=== PATIENT | female | born 1975 | race Caucasian/White ===

== ENCOUNTER 2020-03-15 13:14 | Emergency (ER) | payer BC, SELFPAY ==
[2020-03-15 13:23] VITALS: BP 112/85; PULSE 92; RESP 20; TEMP 36.4; O2SAT 100
--- NOTE | 2020-03-15 13:34 | ED.SKABFB ---
HPI - Skin/Abscess/Foreign Bdy General Chief complaint: Skin/Abscess/Foreign Body Stated complaint: BUMPS Source: patient Mode of arrival: ambulatory Limitations: no limitations History of Present Illness HPI narrative: Patient is a 44 yo female who presents with rash . Patient reports recent MRI with contrast but states no known allergy in the past. Patient reports scattered rash appeared 1 day after MRI, reports itching. Denies using otc creams or meds. Reports itchy . MD complaint: rash Related Data Home Medications Medication Instructions Recorded Confirmed bupropion HCl 150 mg 24 hr tablet, 150 mg PO DAILY tablet 07/26/19 extended release buspirone 10 mg tablet 10 mg PO BID 07/26/19 dextroamphetamine-amphetamine 10 10 mg PO DAILY 07/26/19 mg tablet omeprazole 20 mg capsule,delayed 20 mg PO DAILY 07/26/19 release armodafinil mg PO 03/15/20 baclofen mg 03/15/20 diazepam 03/15/20 duloxetine mg PO 03/15/20 ergocalciferol (vitamin D2) 03/15/20 [Vitamin D2] tramadol mg 03/15/20 trazodone 03/15/20 Allergies Allergy/AdvReac Type Severity Reaction Status Date / Time latex Allergy Unknown Verified 12/15/12 10:36 No Known Allergies Allergy Unverified 09/07/18 15:36 Review of Systems Review of Systems: Narrative: CONSTITUTIONAL: Denies fever, chills, or sweats. EYES: Denies visual changes, redness, or discharge. ENT: Denies rhinorrhea, congestion, sore throat, or otalgia. CARDIOVASCULAR: Denies chest pain, palpitations, or edema. RESPIRATORY: Denies cough or dyspnea. GASTROINTESTINAL: Denies abdominal pain, nausea, vomiting, or diarrhea. GENITOURINARY: Denies dysuria or hematuria. SKIN: Reports rash and itching. MUSCULOSKELETAL: Denies back pain, joint pain, or myalgia. NEUROLOGIC: Denies headache, numbness, dizziness, or weakness. PSYCHIATRIC: Denies anxiety or depression. [facility] Past Medical History Medical History Chest pain at rest Heartburn Intermittent palpitations Smoking Surgical History Surgical History History of breast implant Family History Family History Grandparent Family history of malignant neoplasm of breast, Onset Age: 68 Social History Social History Smoking status: Current some day smoker Alcohol intake: current Exam Narrative: Exam Narrative: GENERAL: Well-appearing, well-nourished, and in no acute distress. HEAD: Normocephalic, atraumatic. EYES: EOMI. No redness or drainage. Conjunctiva are normal. ENT: Mucous membranes pink and moist. CHEST: No respiratory distress. Clear to auscultation. HEART: Regular rate and rhythm. No murmur appreciated. Normal peripheral pulses. EXTREMITIES: Normal range of motion. No edema. SKIN: Pruritic scattered papules with mild erythema NEURO: No focal deficits. Alert and oriented x3. Gait steady. PSYCH: Normal affect. No signs of depression or anxiety. Course Vital Signs Vital signs: Vital Signs Temperature 36.4 C 03/15/20 13:23 Pulse Rate 92 03/15/20 13:23 Respiratory Rate 20 03/15/20 13:23 Blood Pressure 112/85 03/15/20 13:23 Pulse Oximetry 100 03/15/20 13:23 Temperature 36.4 C 03/15/20 13:23 Pulse Rate 92 03/15/20 13:23 Respiratory Rate 20 03/15/20 13:23 Blood Pressure 112/85 03/15/20 13:23 Pulse Oximetry 100 03/15/20 13:23 Reviewed MDM - Skin/Abscess/Foreign Bdy MDM Narrative Medical decision making narrative: Patient appears to have possible multiple insect bites, scattered on torso and bilateral extremities. Discussed with patient the need to wash all bedding etc. Discussed with patient that this is most likely not a reaction to the MRI. Patient understands and agrees with plan of care. Differential Diagnosis Differential diagnosis: Likely insect bites Critical Care Time Critical Car
== END 2020-03-15 13:57 | disposition home or self-care (01) ==
PROVIDERS: Emergency Provider Nurse Practitioner; PCP Emergency Medicine
DX: T14.8XXA Other injury of unspecified body region, initial encounter (principal); S30.861A Insect bite (nonvenomous) of abdominal wall, initial encounter; S20.369A Insect bite (nonvenomous) of unspecified front wall of thorax, initial encounter; S20.96XA Insect bite (nonvenomous) of unspecified parts of thorax, initial encounter; W57.XXXA Bitten or stung by nonvenomous insect and other nonvenomous arthropods, initial encounter; L25.9 Unspecified contact dermatitis, unspecified cause; F17.200 Nicotine dependence, unspecified, uncomplicated
CPT/HCPCS: 99213; G0463

== ENCOUNTER 2021-08-01 02:18 | Day surgery (SDC) | payer BC, SELFPAY ==
[2021-07-29 08:50] VITALS: BMI 21.7
--- NOTE | 2021-07-29 09:13 | PC.NURSE ---
Report to the Outpatient Waiting Room, entrance under the green pavilion located off [facility], at time 0930 on date 08/01/21. OR Time: 1130. - You will be asked a series of questions to screen for COVID 19 for your protection. - A mask is required within the hospital. - No visitors are allowed at this time. Preoperative COVID Testing Requirements: TO BRING COVID CARD No COVID Test needed if: (proof is required; if not received patient will have Rapid Test prior to entry) - Patient has received COVID Vaccine at least 14 days prior to procedure date or - Patient has positive COVID test result within last 90 days of surgery date. COVID Test needed if above criteria is not met Patients may have clear liquids (water, carbonated beverages, clear teas, apple juice) until 3 hours prior to surgery with a maximum of 20 ounces. - No food from midnight until time of surgery Take the following medications with a SIP of water the morning of surgery: DIAZEPAM, DULOXETINE, TRAMADOL (IF NEEDED) Medications to discontinue per physician: N/A Date to take last dose: N/A Please no make-up, nail dutch, hairspray, perfume, deodorant, or body powder the day of surgery. No jewelry (including any body piercings) or valuables the day of surgery, leave them at home. Please take a shower or bath the night before, or the morning of, surgery with an antibacterial soap. Wear comfortable, loose fitting clothing. - Jewelry must be removed prior to entering the operating room. Rings and piercings that are not removed may be cut off. - The hospital will not accept responsibility for valuables. - Please leave all valuables, including medications, at home the day of surgery. If you are going home after surgery, a licensed carrier driver must drive you home. - NO public transportation without another adult. - We recommend that an adult stay with you for 24 hours following discharge. - We also recommend that you do not drive, make important decision, drink alcoholic beverages, or take any drugs that were not prescribed by your health care provider for at least 24 hours after your discharge time. Follow any additional instructions given to you from your surgeon. Telephone instructions given to ROSIO NEWTON and asked if any additional questions and then verbalized understanding. Patient advised to call surgeon office or pre surgery nurse liaison [phone] if any additional questions.
--- NOTE | 2021-07-30 11:46 | PM.IMHP ---
H&P: HPI History of Present Illness Date/Time: 07/30/21 11:46 45-year-old female admitted for hysteroscopy dilatation curettage secondary to postmenopausal bleeding. She had some light spotting she had been taking hormone. She had an ultrasound that showed mildly thickened endometrium and could not be completely visualized so she was offered hysteroscopy D& C. Risks and benefits reviewed in great detail Chief Complaint: Postmenopausal bleeding Review of Systems Review of Systems: All systems reviewed & are unremarkable except as noted in HPI and below PMFSH Past Medical History Medical History Chest pain at rest Heartburn Intermittent palpitations Smoking Surgical History Surgical History History of breast implant Family History Family History Grandparent Family history of malignant neoplasm of breast, Onset Age: 68 Social History Social History Smoking packs per day: 0.5 Smoking cigarettes per day: 10.0 Years smoked: 34 Smoking pack-years: 17.00 Smoking status: Current every day smoker Tobacco type: cigarettes Alcohol intake: current Alcohol use details: VERY RARE Substance use: current Substance use type: marijuana Living arrangements: with family Spiritual care concerns: No Meds Home Medications and Allergies Home Medications Medication Instructions Recorded Confirmed Type dextroamphetamine-amphetamine 10 10 mg PO DAILY PRN 07/26/19 07/29/21 History mg tablet omeprazole 20 mg capsule,delayed 20 mg PO DAILY 07/26/19 07/29/21 History release baclofen 10 mg PO TID PRN 03/15/20 07/29/21 History diazepam 5 mg PO BID PRN 03/15/20 07/29/21 History duloxetine 30 mg PO DAILY 03/15/20 07/29/21 History tramadol 50 mg PO PRN PRN 03/15/20 07/29/21 History famotidine 20 mg PO BID 07/29/21 07/29/21 History Allergies Allergy/AdvReac Type Severity Reaction Status Date / Time adhesive tape AdvReac Rash Verified 07/29/21 08:43 Exam Const: General: no acute distress Eyes: General: appearance normal, both eyes and all related structures Neck: Neck: supple and no JVD Thyroid: thyroid normal Resp: Effort & Inspection: normal respiratory effort Auscultation: clear to auscultation bilaterally Cardio: Rate: regular rate Rhythm: regular rhythm GI: Inspection: non-distended GI Palp: Yes Soft to palpation, No Tenderness to palpation present (GI) and No Guarding due to palpation present (GI) Auscultation: normal bowel sounds : General: Yes bladder normal to palpation External Female Exam: normal external appearance Speculum Exam - Vagina: normal vaginal discharge and No vaginal bleeding Speculum Exam - Cervix: nontender Bimanual exam- vagina & uterus: bladder normal to palpation and No Cervical tenderness present OB/external & speculum: No vaginal bleeding Skin: General skin exam: no rashes or lesions noted Extrem: General: normal to inspection and no edema Psych: Mental Status: mental status grossly normal Affect: normal affect Assessment and Plan Additional Plan Impression: Postmenopausal bleeding Plan: Hysteroscopy/dilatation curettage
--- NOTE | 2021-07-31 15:06 | WPDANESEPPF ---
Anes - Initial Pre Proc Eval Procedure: Operation Date: 08/01/21 13:30 Proposed Procedures p Hysteroscopy with Dilation and Curettage - Caleb Price MD Date/Time: 07/31/21 15:06 Surgeon: Caleb Price MD Pre Op Diagnosis: Post Menopausal Bleeding Patient Data Age: 45 Gender: F Height: 1.7 m Weight: 63.05 kg Allergies Allergy/AdvReac Type Severity Reaction Status Date / Time adhesive tape AdvReac Mild Rash Verified 08/01/21 11:46 Home Medications Medication Instructions Recorded Confirmed Type dextroamphetamine-amphetamine 10 10 mg PO DAILY PRN 07/26/19 08/01/21 History mg tablet omeprazole 20 mg capsule,delayed 20 mg PO DAILY 07/26/19 08/01/21 History release baclofen 10 mg PO TID PRN 03/15/20 08/01/21 History diazepam 5 mg PO BID PRN 03/15/20 08/01/21 History duloxetine 30 mg PO DAILY 03/15/20 08/01/21 History tramadol 50 mg PO PRN PRN 03/15/20 07/29/21 History famotidine 20 mg PO BID 07/29/21 08/01/21 History hydrocodone-acetaminophen 1 tablet PO Q4H PRN #14 tablet 08/01/21 Rx Patient hx anesthesia problems: none Family hx anesthesia problems: none Results Review: All pre-operative results and documents have been reviewed as part of the pre-operative evaluation. [facility] Past Medical History Medical History Anxiety Chest pain at rest Heartburn Intermittent palpitations Multiple sclerosis Smoking Surgical History Surgical History History of breast implant Family History Family History Grandparent Family history of malignant neoplasm of breast, Onset Age: 68 Social History Social History Smoking packs per day: 0.5 Smoking cigarettes per day: 10.0 Years smoked: 34 Smoking pack-years: 17.00 Smoking status: Current every day smoker Tobacco type: cigarettes Alcohol intake: current Alcohol use details: VERY RARE Substance use: current Substance use type: marijuana Living arrangements: with family Spiritual care concerns: No Anes - Eval Final PreProcedure Day of Procedure 07/31/21 15:06 Patient weight: normal Heart: regular rate and rhythm Lungs: clear to auscultation and normal air movement Airway: Mallampati scale class II Neurological: alert and oriented Last oral intake: >/= 8 hours ASA classification: III Emergent: no Anesthetic plan: proceed Anesthesia type and monitoring: general GIVS and standard monitoring Results Review: All pre-operative results and documents have been reviewed as part of the pre-operative evaluation. Informed Consent: The patient's anesthetic plan and its attendant risks and benefits were discussed with the patient/family/POA. Questions were solicited and answers provided to the satisfaction of the patient/family/POA.
--- NOTE | 2021-08-01 07:21 | WPDHPUPDATE1 ---
History and Physical Update Update Date/Time: 08/01/21 07:21 History and Physical has been reviewed, including an updated exam of the patient. There are NO changes in the patient's condition. Risks, benefits, and alternatives have been discussed and questions answered. Patient agrees to proceed with procedure.
[2021-08-01 11:48] VITALS: BP 100/67; PULSE 70; RESP 16; TEMP 36.6; O2SAT 100
[2021-08-01] MEDS: ACETAMINOPHEN 500 MG TABLET 1000 MG PO (12:13)
[2021-08-01] MEDS: LACTATED RINGERS 1,000 ML 30 ML IV CONT (12:15)
[2021-08-01 12:36] LABS: Hematocrit 40.7 % (37.0-47.0); Hemoglobin 13.5 g/dL (12.0-15.0)
--- NOTE | 2021-08-01 12:58 | WPDANESEPPF ---
Anes - Initial Pre Proc Eval Procedure: Operation Date: 08/01/21 13:30 Proposed Procedures p Hysteroscopy with Dilation and Curettage - Caleb Price MD Date/Time: 08/01/21 12:58 Surgeon: Caleb Price MD Pre Op Diagnosis: Post Menopausal Bleeding Patient Data Age: 45 Gender: F Height: 1.7 m Weight: 62.6 kg Last Vital Signs Temp 97.8 F 08/01/21 11:48 Pulse 70 08/01/21 11:48 Resp 16 08/01/21 11:48 BP 100/67 08/01/21 11:48 Pulse Ox 100 08/01/21 11:48 Allergies Allergy/AdvReac Type Severity Reaction Status Date / Time adhesive tape AdvReac Mild Rash Verified 08/01/21 11:46 Home Medications Medication Instructions Recorded Confirmed Type dextroamphetamine-amphetamine 10 10 mg PO DAILY PRN 07/26/19 08/01/21 History mg tablet omeprazole 20 mg capsule,delayed 20 mg PO DAILY 07/26/19 08/01/21 History release baclofen 10 mg PO TID PRN 03/15/20 08/01/21 History diazepam 5 mg PO BID PRN 03/15/20 08/01/21 History duloxetine 30 mg PO DAILY 03/15/20 08/01/21 History tramadol 50 mg PO PRN PRN 03/15/20 07/29/21 History famotidine 20 mg PO BID 07/29/21 08/01/21 History hydrocodone-acetaminophen 1 tablet PO Q4H PRN #14 tablet 08/01/21 Rx Laboratory Tests 08/01/21 12:15 Hgb 13.5 g/dL g/dL (12.0-15.0) Hct 40.7 % % (37.0-47.0) Patient hx anesthesia problems: none Family hx anesthesia problems: none Results Review: All pre-operative results and documents have been reviewed as part of the pre-operative evaluation. [facility] Past Medical History Medical History Anxiety Chest pain at rest Heartburn Intermittent palpitations Multiple sclerosis Smoking Surgical History Surgical History History of breast implant Family History Family History Grandparent Family history of malignant neoplasm of breast, Onset Age: 68 Social History Social History Smoking packs per day: 0.5 Smoking cigarettes per day: 10.0 Years smoked: 34 Smoking pack-years: 17.00 Smoking status: Current every day smoker Tobacco type: cigarettes Alcohol intake: current Alcohol use details: VERY RARE Substance use: current Substance use type: marijuana Living arrangements: with family Spiritual care concerns: No Anes - Eval Final PreProcedure Day of Procedure 08/01/21 12:58 Patient weight: normal Heart: regular rate and rhythm Lungs: clear to auscultation Airway: Mallampati scale class II Neurological: alert and oriented Last oral intake: >/= 8 hours ASA classification: III Emergent: no Anesthetic plan: proceed Anesthesia type and monitoring: general GIVS and standard monitoring Results Review: All pre-operative results and documents have been reviewed as part of the pre-operative evaluation. Informed Consent: The patient's anesthetic plan and its attendant risks and benefits were discussed with the patient/family/POA. Questions were solicited and answers provided to the satisfaction of the patient/family/POA.
[2021-08-01] MEDS: KETOROLAC 30 MG/ML VIAL (*BKC) IV PUSH (13:28)
--- NOTE | 2021-08-01 13:30 | W.PM.PROC2 ---
Procedure Note - Detailed Date of Procedure 08/01/21 Pre-op Diagnosis Post Menopausal Bleeding Post-op Diagnosis same Procedure Performed Hysteroscopy/dilatation and curettage Surgeon Caleb Price MD Anesthesia MAC and local Indications Postmenopausal bleeding Findings The benign-appearing endometrial tissue Description of Procedure Patient was prepped draped in normal sterile fashion placed in dorsal lithotomy position. Under excellent IV sedation weighted speculum placed post fornix vagina. Anterior lip of the cervix grasped with single-tooth tenaculum. 2.5cc 1% xylocaine anesthesia placed at 2, 4, 8, 10:00 a.m. of the cervix. Uterus sounded 8cm. Serial dilatation with fragmented dilators performed followed by passage of the 5mm visualizing hysteroscope. Normal saline was used as visualizing medium. A few bloodied areas were seen with a small clot but no evidence of polyp or other abnormality seen. The uterus then scraped over the entire 360?. After good grating sound was heard, the instruments removed. All sponge, needle, instrument counts were correct. There were no immediate complications Estimated Blood Loss 5 Drains No Packing No Pathology yes Complications No immediate complications Condition stable Disposition PACU
[2021-08-01 13:33] VITALS: BP 104/67; PULSE 75; RESP 14; O2SAT 99
[2021-08-01 14:00] VITALS: BP 112/65; PULSE 75
[2021-08-01 14:30] VITALS: BP 106/61; PULSE 73
== END 2021-08-01 14:52 | disposition home or self-care (01) ==
PROVIDERS: PCP Emergency Medicine; Visit Provider Obstetrics & Gynecology
PROC: 0U5B8ZZ Destruction of Endometrium, Via Natural or Artificial Opening Endoscopic (ICD-10-PCS; CPT 58563; principal; 2021-08-01 13:30)
DX: N95.0 Postmenopausal bleeding (principal); N84.1 Polyp of cervix uteri; G35 Multiple sclerosis; F41.9 Anxiety disorder, unspecified; F17.210 Nicotine dependence, cigarettes, uncomplicated
CPT/HCPCS: 58558; 36415; 85014; 85018; 88305; A9270; J1885; J2250; J2270; J2405; J2704; J7030; J7120

== ENCOUNTER 2022-03-09 10:39 | Emergency (ER) | payer BC, SELFPAY ==
[2022-03-09 11:07] VITALS: BP 115/86; PULSE 102; RESP 18; TEMP 36.5; O2SAT 100
--- NOTE | 2022-03-09 12:00 | ED.LOWEXIN ---
HPI - Extremity Injury (Lower) General Chief Complaint: Extremity Injury, Lower Stated Complaint: Ankle pain Time Seen by Provider: 03/09/22 12:00 Source: patient, RN notes reviewed and old records reviewed Mode of arrival: ambulatory Limitations: no limitations History of Present Illness HPI Narrative: 46-year-old female presents to the [facility] with complaints of an abrasion to the medial aspect right ankle. Patient states that she was in [place] [facility] the [facility] when she scraped the ankle on concrete. Patient is afraid she has something in it. Denies any trauma. Full range of motion noted. Reports that she cleaned it when it first happened and then applied a Band-Aid. Onset (ago): day(s) (2) Related Data Home Medications Medication Instructions Recorded Confirmed dextroamphetamine-amphetamine 10 10 mg PO DAILY PRN INATTENTION 07/26/19 03/09/22 mg tablet (Adderall) omeprazole 20 mg capsule,delayed 20 mg PO DAILY 07/26/19 03/09/22 release baclofen 10 mg tablet 10 mg PO TID PRN Pain 03/15/20 03/09/22 diazepam 5 mg tablet 5 mg PO BID PRN Anxiety 03/15/20 03/09/22 duloxetine 30 mg capsule,delayed 30 mg PO DAILY 03/15/20 03/09/22 release tramadol 50 mg tablet 50 mg PO PRN PRN Pain 03/15/20 03/09/22 famotidine 20 mg tablet 20 mg PO BID 07/29/21 03/09/22 estradiol-norethindrone acet 1 1 tablet PO DAILY 03/09/22 03/09/22 mg-0.5 mg tablet Allergies Allergy/AdvReac Type Severity Reaction Status Date / Time methylprednisolone Allergy Intermediate Hives Verified 03/09/22 12:17 adhesive tape AdvReac Mild Rash Verified 03/09/22 11:58 Review of Systems Review of Systems: All systems reviewed & are unremarkable except as noted in HPI and below Constitutional: Constitutional: Reports no additional constitutional complaints, Denies chills and Denies fever(s) Eyes: Eyes: Reports no additional eye complaints ENT: Reports system reviewed and no additional complaints, except as documented Cardiovascular: Cardiovascular: Reports no additional cardiovascular complaints Respiratory: Respiratory: Reports no additional respiratory complaints Gastrointestinal: Gastrointestinal: Reports no additional gastrointestinal complaints Musculoskeletal: Musculoskeletal: Reports no additional musculoskeletal complaints Integumentary/Breasts: Skin/Breast: Reports as per HPI Neurologic: Reports system reviewed and no additional complaints, except as documented Psychiatric: Psychiatric: Reports no additional psychiatric complaints Allergic/Immunologic: Allergic/Immunologic: Reports no additional allergic/immunologic complaints [facility] Past Medical History Medical History Anxiety Chest pain at rest Heartburn Intermittent palpitations Multiple sclerosis Smoking Surgical History Surgical History History of breast implant Family History Family History Grandparent Family history of malignant neoplasm of breast, Onset Age: 68 Social History Social History Smoking packs per day: 0.5 Smoking cigarettes per day: 10.0 Years smoked: 34 Smoking pack-years: 17.00 Smoking status: Current every day smoker Tobacco type: cigarettes Alcohol intake: current Alcohol use details: VERY RARE Substance use: current Substance use type: marijuana Spiritual care concerns: No Comments At the time of my signature, I reviewed and agree with the nursing past medical, surgical, social, and family history. There is no relevant family history pertinent to the patient complaint. Exam Const: General: healthy appearing, no acute distress and alert Nutritional Appearance: well nourished Orientation/consciousness: patient oriented x3 Limitations: no limitations HENMT: Head: normal to inspection Ears: external ears normal Eyes: General: appearance normal, both ey
[2022-03-09] MEDS: TETANUS,DIPHTHERIA,AC PERTUSSIS ADULT (0.5 ML) BOOSTRIX IM (12:32)
== END 2022-03-09 12:42 | disposition home or self-care (01) ==
PROVIDERS: Emergency Provider Nurse Practitioner; PCP Internal Medicine
DX: S90.511A Abrasion, right ankle, initial encounter (principal); W22.8XXA Striking against or struck by other objects, initial encounter; Z23 Encounter for immunization; F17.210 Nicotine dependence, cigarettes, uncomplicated; G35 Multiple sclerosis; F41.9 Anxiety disorder, unspecified; R12 Heartburn
CPT/HCPCS: 90471; 90715; 99213; G0463

== ENCOUNTER 2023-09-16 13:31 | Outpatient (CLI) | payer BC, SELFPAY ==
--- NOTE | ~2023-09-16 | XR_ITS ---
EXAMINATION: XR hip RT min 2V DATE: 09/16/2023 13:49 INDICATION: Right hip pain. TECHNIQUE: 2 views of right hip were obtained. COMPARISON: None. FINDINGS: Bone alignment is normal. No fracture. There is mild right hip osteoarthritis characterized by tiny osteophytes. IMPRESSION: 1. Mild right hip osteoarthritis. Reviewed, dictated and finalized at location E. [employer]IAL CAR[employer]ER
== END 2023-09-16 13:32 | disposition home or self-care (01) ==
PROVIDERS: PCP Nurse Practitioner Adult Health; Visit Provider Nurse Practitioner Adult Health
DX: M16.11 Unilateral primary osteoarthritis, right hip (principal)
CPT/HCPCS: 73502

== ENCOUNTER 2023-11-24 14:32 | Outpatient (CLI) | payer BC, SELFPAY ==
--- NOTE | ~2023-11-24 | MR_ITS ---
EXAMINATION: MR hip RT wo con DATE: 11/24/2023 15:38 INDICATION: Right hip pain. TECHNIQUE: Magnetic resonance imaging (MRI) of the right hip was performed without intravenous contra st. COMPARISON: Pelvis and right hip radiographs 11/12/2023 FINDINGS: Bones/cartilage: There is 6 degrees levocurvature of lumbar spine. The femoral head/neck morphologies are normal. Smal l [id number] images of right hip joint demonstrate normal cartilage. Labrum: The right acetabular labrum is normal. Fluid: There is a small left hip joint effusion. There is mild bilateral trochanteric bursitis. Soft tissues: There is a small partial tear of right hamstring tendon origin. There is mild left hamstring tendinop athy. The iliopsoas tendons are normal. The gluteus minutes and gluteus medius tendons are normal. IMPRESSION: 1. Normal right hip joint. Reviewed, dictated and finalized at location E. IMPRESSION: 1. Normal right hip joint.
== END 2023-11-24 14:33 | disposition home or self-care (01) ==
LOC: ANHIMG 14:35
PROVIDERS: PCP Nurse Practitioner Adult Health; Visit Provider Orthopaedic Surgery
DX: M25.551 Pain in right hip (principal)
CPT/HCPCS: 73721

== ENCOUNTER 2025-03-21 09:27 | Outpatient (CLI) | payer OTHER, SELFPAY ==
--- OUTSIDE RECORDS SUMMARY | 2021-01-30 13:18 | XMS_ITS | Continuity of Care Document ---
Author Organization [facility] Address [address] [place] [address] Phone Care Team Providers Care Credit Checker Name Role Phone Mono Sloan MD Unavailable Unavailable Allergies, Adverse Reactions, Alerts Substance Reaction Status Criticality No Known Allergies Active No Inform ation Medications Medication Instructions Dosage Effective Dates (start - stop) Status Comments Ocrevus 30 mg/mL intravenous solution infuse (600MG) by intravenous route every 6 months over at least (maximum infusion rate 200 mL/hr) 600 MG - Active Valium 5 mg tablet take 1 tablet by oral route 2 times every day as needed 5 MG - Active avoid drivin g or operate machines, PRN for anxiety Ultram 50 mg tablet take 1 tablet by oral route every 6 hours as needed as needed - Active PRN for pain, avoid driving or operate machines Adderall 10 mg tablet take 1 tablet by oral route every day before breakfast 10 MG - Active Pepcid 20 mg tablet take 1 tablet by oral route 2 times every day 20 MG - Active Cymbalta 30 mg capsule,delayed release take 1 capsule by oral route every day 30 MG - Active Vitamin D2 1,250 mcg (50,000 unit) capsule take one capsule orally once per week - Active baclofen 10 mg tablet take 1 tablet by oral route 3 times every day 10 MG - Active Procedures Procedure Date OFFICE/OUTPATIENT VISIT, EST OFFICE/OUTPATIENT VISIT, EST OFFICE/OUTPATIENT VISIT, EST OFFICE/OUTPATIENT VISIT, EST PREV VISIT, EST, AGE 40-64 OFFICE/OUTPATIENT VISIT, EST OFFICE/OUTPATIENT VISIT, EST OFFICE/OUTPATIENT VISIT, EST OFFICE/OUTPATIENT VISIT, EST PREV VISIT, EST, AGE 40-64 OFFICE/OUTPATIENT VISIT, EST OFFICE/OUTPATIENT VISIT, EST OFFICE/OUTPATIENT VISIT, EST OFFICE/OUTPATIENT VISIT, EST OFFICE/OUTPATIENT VISIT, EST OFFICE/OUTPATIENT VISIT, EST OFFICE/OUTPATIENT VISIT, EST PREV VISIT, EST, AGE 40-64 OFFICE/OUTPATIENT VISIT, EST OFFICE/OUTPATIENT VISIT, EST OFFICE/OUTPATIENT VISIT, EST OFFICE/OUTPATIENT VISIT, EST PREV VISIT, EST, AGE 40-64 OFFICE/OUTPATIENT VISIT, EST OFFICE/OUTPATIENT VISIT, EST OFFICE/OUTPATIENT VISIT, EST OFFICE/OUTPATIENT VISIT, EST OFFICE/OUTPATIENT VISIT, EST PREV VISIT, EST, AGE 18-39 OFFICE/OUTPATIENT VISIT, EST OFFICE/OUTPATIENT VISIT, EST OFFICE/OUTPATIENT VISIT, EST OFFICE/OUTPATIENT VISIT, EST OFFICE/OUTPATIENT VISIT, EST OFFICE/OUTPATIENT VISIT, EST PREV VISIT, EST, AGE 18-39 OFFICE/OUTPATIENT VISIT, EST OFFICE/OUTPATIENT VISIT, EST OFFICE/OUTPATIENT VISIT, EST OFFICE/OUTPATIENT VISIT, EST OFFICE/OUTPATIENT VISIT, EST Advance Directives Directive Yes / No Effective Date File Name No Information Encounters Encounter Description Practice Location Reason(s) For Visit Diagnoses Date Provider Providers Copied on Encounter OFFICE/OUTPA TIENT VISIT, [facility], [address] [place] [address] [facility] [place], [address], [place] tel:[phone] [facility] anxiety1 (chief complaint) GERD1 (chief complaint) ADD (chief complaint) MS (chief complaint) Generalized anxiety disorderGERD w/o esophagitisAttentio n deficitMultiple sclerosis NOS Blaine- 1 Luther Sykes [address], [place], [place], [address] , [place]. tel:[phone] OFFICE/OUTPA TIENT VISIT, [facility], [address], [place], [place], [address], [place] tel:[phone] [facility] glucose1 (chief complaint) CPK (chief complaint) ADD (chief complaint) anxiety1 (chief complaint) MS (chief complaint) GERD1 (chief complaint) Multiple sclerosis NOSGERD w/o esophagitisGenerali zed anxiety disorderAttention deficitOther disorders of phosphorus metabolismHyperglyc emia 0 Luther Sykes [address], [place], [place], [address] , [place]. tel:[phone] OFFICE/OUTPA TIENT VISIT, [facility], [address], [place], [place], [address], [place] tel:[phone] [facility] amenorrhea 1 (chief complaint) low D (chief complaint) AmenorrheaOther disorders of phosphorus metabolismVitamin D deficiency, unspecified 0 Luther Villareal. [address], [place], [place], [address] , [place]. tel:[phone] OFFICE/OUTPA TIENT VISIT, [facility], [address], [place], [place], [address], [place] tel:[phone] [facility] anxiety1 (chief complaint) MS (chief complaint) GERD1 (chief complaint) amenorrhea 1 (chief complaint) GERD w/o esophagitisMultiple sclerosis NOSGeneralized anxiety disorderAmenorrhea 0 Luther Villareal. [address], [place], [place], [address] , [place]. tel:[phone] PREV VISIT, EST, AGE 40-64 [facility], [address], [place], [place], [address], [place] tel:[phone] [facility] physical (chief complaint) Encounter for general adult medical exam w abnormal findingsMultiple sclerosis NOSGERD w/o esophagitisAttentio n deficitGeneralized anxiety disorder 0 Luther Villareal. [address], [place], [place], [address] , [place]. tel:[phone] OFFICE/OUTPA TIENT VISIT, [facility], [address], [place], [place], [address], [place] tel:[phone] [facility] MS (chief complaint) ADD (chief complaint) GERD1 (chief complaint) physical (chief complaint) Attention deficitMultiple sclerosis NOSChronic pain syndromeGERD w/o esophagitis 9 Luther Villareal. [address], [place], [place], [address] , [place]. tel:[phone] Referring Provider: You In[address], [place], [place], [address]. tel:[phone] OFFICE/OUTPA TIENT VISIT, [facility], [address], [place], [place], [address], [place] tel:[phone] [facility] anxiety1 (chief complaint) ADD (chief complaint) MS (chief complaint) SPEP (chief complaint) amenorrhea 1 (chief complaint) Multiple sclerosis NOSAttention deficitGeneralized anxiety disorderAbnormal serum enzyme level, unspecifiedAmenorrh ea 9 Luther Villareal. [address], [place], [place], [address] , [place]. tel:[phone] Referring Provider: You In[address], [place], [place], [address]. tel:[phone] OFFICE/OUTPA TIENT VISIT, [facility], [address], [place], [place], [address], [place] tel:[phone] [facility] anxiety1 (chief complaint) finger pain1 (chief complaint) spider bite1 (chief complaint) Attention deficitGeneralized anxiety disorderGERD w/o esophagitisNevus, non-neoplastic 9 Luther Villareal. [address], [place], [place], [address] , [place]. tel:[phone] Referring Provider: You In[address], [place], [place], [address]. tel:[phone] PREV VISIT, EST, AGE 40-64 [facility], [address], [place], [place], [address], [place] tel:[phone] [facility] PHysical (chief complaint) Encounter for general adult medical exam w abnormal findingsGERD w/o esophagitisGenerali zed anxiety disorderAttention deficitMigraineNevu s, non-neoplastic 9 Luther Villareal. [address], [place], [place], [address] , [place]. tel:[phone] Referring Provider: You In[address], [place], [place], [address]. tel:[phone] OFFICE/OUTPA TIENT VISIT, [facility], [address], [place], [place], [address], [place] tel:[phone] [facility] GERD1 (chief complaint) ADD (chief complaint) chest pain1 (chief complaint) GERD w/o esophagitisChest painAttention deficitDiaphragmati c hernia 8 Luther Sykes [address], [place], [place], [address] , [place]. tel:[phone] Referring Provider: You In[address], [place], [place], [address]. tel:[phone] OFFICE/OUTPA TIENT VISIT, [facility], [address], [place], [place], [address], [place] tel:[phone] [facility] midabd pain1 (chief complaint) anxiety1 (chief complaint) ADD (chief complaint) headache1 (chief complaint) HeadacheChest painGERD w/o esophagitisAttentio n deficitGeneralized anxiety disorder 8 Luther Villareal. [address], [place], [place], [address] , [place]. tel:[phone] Referring Provider: You In[address], [place], [place], [address]. tel:[phone] OFFICE/OUTPA TIENT VISIT, [facility], [address], [place], [place], [address], [place] tel:[phone] [facility] headache1 (chief complaint) MigraineAbnormal brain scan 8 Luther Villareal. [address], [place], [place], [address] , [place]. tel:[phone] Referring Provider: You In[address], [place], [place], [address]. tel:[phone] OFFICE/OUTPA TIENT VISIT, [facility], [address], [place], [place], [address], [place] tel:[phone] [facility] headache1 (chief complaint) anxiety1 (chief complaint) ADD (chief complaint) HeadacheAttention deficitGeneralized anxiety disorderNevus, non-neoplastic 8 Luther Sykes [address], [place], [place], [address] , [place]. tel:[phone] Referring Provider: You In[address], [place], [place], [address]. tel:[phone] OFFICE/OUTPA TIENT VISIT, [facility], [address], [place], [place], [address], [place] tel:[phone] [facility] palpitatio n1 (chief complaint) ADD (chief complaint) anxiety1 (chief complaint) PalpitationsAttenti on deficitGeneralized anxiety disorder 8 Luther Sykes [address], [place], [place], [address] , [place]. tel:[phone] Referring Provider: You [address], [place], [place], [address]. tel:[phone] OFFICE/OUTPA TIENT VISIT, EST [facility], [address], [place], [place], [address], [place] tel:[phone] [facility] chest pain1 (chief complaint) vitamin D1 (chief complaint) anxiety 1 (chief complaint) ADD (chief complaint) Chest painAttention deficitVitamin D deficiency, unspecifiedGenerali zed anxiety disorder May-0 7-201 8 Luther Villareal. [address], [place], [place], [address] , [place]. tel:[phone] Referring Provider: You In[address], [place], [place], [address]. tel:[phone] PREV VISIT, EST, AGE 40-64 [facility], [address], [place], [place], [address], [place] tel:[phone] [facility] Physical (chief complaint) Encounter for general adult medical exam w abnormal findingsAttention deficitGeneralized anxiety disorder Apr-0 9- 8 Luther Villareal. [address], [place], [place], [address] , [place]. [phone] Referring Provider: You Ingram [address], [place], [place], [address]. tel:[phone] OFFICE/OUTPA TIENT VISIT, EST [facility], [address], [place], [place], [address], [place] tel:[phone] [facility] anixety1 (chief complaint) ADD (chief complaint) underweigh t (chief complaint) chest pain1 (chief complaint) Attention deficitGeneralized anxiety disorderUnderweight Chest pain May-0 9-201 6 Luther Villareal. [address], [place], [place], [address] , [place]. tel:[phone] Referring Provider: You In[address], [place], [place], [address]. tel:[phone] OFFICE/OUTPA TIENT VISIT, EST [facility], [address], [place], [place], [address], [place] tel:[phone] [facility] chest pain (chief complaint) chest pain1 (chief complaint) anxeity1 (chief complaint) ADD1 (chief complaint) Other chest painGeneralized anxiety disorderAttention deficit 6 Luther Villareal. [address], [place], [place], [address] , [place]. [phone] Referring Provider: You Ingram [address], [place], [place], [address]. tel:[phone] OFFICE/OUTPA TIENT VISIT, [facility], [address], [place], [place], [address], [place] tel:[phone] [facility] chest pain (chief complaint) chest pain1 (chief complaint) Other chest painOther emphysema 6 Luther Villareal. [address], [place], [place], [address] , [place]. [phone] Referring Provider: You In[address], [place], [place], [address]. tel:[phone] PREV VISIT, EST, AGE 40-64 [facility], [address], [place], [place], [address], [place] tel:[phone] [facility] Physical (chief complaint) Encounter for adult health check-upMixed hyperlipidemiaGener alized anxiety disorderAttention and concentration deficitNevus, non-neoplasticEncou nter for general adult medical exam w abnormal findings 5 Luther Villareal. [address], [place], [place], [address] , [place]. [phone] Referring Provider: You Ingram [address], [place], [place], [address]. tel:[phone] OFFICE/OUTPA TIENT VISIT, [facility], [address], [place], [place], [address], [place] tel:[phone] [facility] anxiety (chief complaint) Generalized anxiety disorderAttention deficit disorder of childhood without mention of hyperactivityDepres hailee 5 Luther Villareal. [address], [place], [place], [address] , [place]. tel:[phone] Referring Provider: Mono Sloan, [address], [place], [place], [address]. tel:[phone] OFFICE/OUTPA TIENT VISIT, [facility], [address], [place], [place], [address], [place] tel:[phone] [facility] anxiety (chief complaint) ADD (chief complaint) HLP (chief complaint) Other and unspecified hyperlipidemiaAtten tion deficit disorder of childhood without mention of hyperactivityGenera lized anxiety disorder 5 Luther Villareal. [address], [place], [place], [address] , [place]. [phone] Referring Provider: Mono Sloan, [address], [place], [place], [address]. tel:[phone] OFFICE/OUTPA TIENT VISIT, [facility], [address], [place], [place], [address], [place] tel:[phone] [facility] back pain (chief complaint) depression (chief complaint) ADD (chief complaint) DepressionAttention deficit disorder of childhood without mention of hyperactivityLumbag o 5 Luther Villareal. [address], [place], [place], [address] , [place]. tel:[phone] Referring Provider: Mono Sloan, [address], [place], [place], [address]. tel:[phone] OFFICE/OUTPA TIENT VISIT, [facility], [address], [place], [place], [address], [place] tel:[phone] [facility] HLP (chief complaint) anxiety (chief complaint) ADD (chief complaint) Other and unspecified hyperlipidemiaGener alized anxiety disorderAttention deficit disorder of childhood without mention of hyperactivity Dec-0 5 4 Luther Villareal. [address], [place], [place], [address] , [place]. tel:[phone] Referring Provider: You Ingram [address], [place], [place], [address]. tel:[phone] PREV VISIT, EST, AGE 18-39 [facility], [address], [place], [place], [address], [place] tel:[phone] [facility] Physical (chief complaint) Routine Medical ExamAttention deficit disorder of childhood without mention of hyperactivityGenera lized anxiety disorderUnderweight Routine Medical Exam Sep-0 2 4 Luther Villareal. [address], [place], [place], [address] , [place]. [phone] Referring Provider: You In[address], [place], [place], [address]. tel:[phone] OFFICE/OUTPA TIENT VISIT, EST [facility], [address], [place], [place], [address], [place] tel:[phone] [facility] anxiety (chief complaint) ADD (chief complaint) Dietary surveillance and counselingGeneraliz ed anxiety disorderAttention deficit disorder of childhood without mention of hyperactivityDepres hailee Jan-0 4 Luther Villareal. [address], [place], [place], [address] , [place]. tel:[phone] Referring Provider: You In[address], [place], [place], [address]. tel:[phone] OFFICE/OUTPA TIENT VISIT, EST [facility], [address], [place], [place], [address], [place] tel:[phone] [facility] anxiety (chief complaint) ADD (chief complaint) Generalized anxiety disorderMajor depressive affective disorder, single episode, mild degreeAttention deficit disorder of childhood without mention of hyperactivity Apr-1 4 Luther Villareal. [address], [place], [place], [address] , [place]. tel:[phone] Referring Provider: You In[address], [place], [place], [address]. tel:[phone] OFFICE/OUTPA TIENT VISIT, [facility], [address], [place], [place], [address], [place] tel:[phone] [facility] Anxiety (chief complaint) aDD (chief complaint) Attention deficit disorder of childhood without mention of hyperactivityGenera lized anxiety disorderMajor depressive affective disorder, single episode, mild degree 4 Luther Villareal. [address], [place], [place], [address] , [place]. tel:[phone] Referring Provider: You Ingram [address], [place], [place], [address]. tel:[phone] OFFICE/OUTPA TIENT VISIT, [facility], [address], [place], [place], [address], [place] tel:[phone] [facility] knee pain (chief complaint) shoulder pain (chief complaint) Pain in joint involving lower legPain in joint involving shoulder regionGeneralized anxiety disorder 3 Luther Villareal. [address], [place], [place], [address] , [place]. tel:[phone] Referring Provider: You In[address], [place], [place], [address]. tel:[phone] OFFICE/OUTPA TIENT VISIT, [facility], [address], [place], [place], [address], [place] tel:[phone] [facility] anxiety (chief complaint) ADD (chief complaint) shoulder pain (chief complaint) Generalized anxiety disorderAttention deficit disorder of childhood without mention of hyperactivityDietar y surveillance and counselingPain in joint involving shoulder region 3 Luther Villareal. [address], [place], [place], [address] , [place]. tel:[phone] Referring Provider: Mono Sloan, [address], [place], [place], [address]. tel:[phone] PREV VISIT, EST, AGE 18-39 [facility], [address], [place], [place], [address], [place] tel:[phone] [facility] Physical (chief complaint) Dietary surveillance and counselingRoutine Medical ExamMyalgia and myositis, unspecifiedAttentio n deficit disorder of childhood without mention of hyperactivityGenera lized anxiety disorderRoutine Medical Exam 3 Luther Villareal. [address], [place], [place], [address] , [place]. tel:[phone] Referring Provider: You In[address], [place], [place], [address]. tel:[phone] OFFICE/OUTPA TIENT VISIT, EST [facility], [address], [place], [place], [address], [place] tel:[phone] [facility] right shoulder pain (chief complaint) Dietary surveillance and counselingPain in joint involving shoulder region 3 Luther Villareal. [address], [place], [place], [address] , [place]. tel:[phone] Referring Provider: You In[address], [place], [place], [address]. tel:[phone] OFFICE/OUTPA TIENT VISIT, EST [facility], [address], [place], [place], [address], [place] tel:[phone] [facility] right breast nodule (chief complaint) anxiety (chief complaint) Lump or mass in breastUnspecified vitamin d deficiencyGeneraliz ed anxiety disorder Oct- 3 Luther Villareal. [address], [place], [place], [address] , [place]. tel:[phone] Referring Provider: You In[address], [place], [place], [address]. tel:[phone] OFFICE/OUTPA TIENT VISIT, EST [facility], [address], [place], [place], [address], tel:[phone] [facility] chest pain (chief complaint) anxiety (chief complaint) ADD (chief complaint) UnderweightChest TightnessGeneralize d anxiety disorderAttention deficit disorder of childhood without mention of hyperactivity 3 Luther Villareal. [address] [facility] [place], [address] , . tel:[phone] Referring Provider: Mono Sloan, [address] [facility] [address], [place], [place], [address]. tel:[phone] OFFICE/OUTPA TIENT VISIT, EST [facility], [address] [place], [address], tel:[phone] [facility] back pain (chief complaint) depression (chief complaint) LumbagoMajor depressive affective disorder, single episode, mild degreeAttention deficit disorder of childhood without mention of hyperactivity 2 Luther Villareal. [address] [facility] [place], [address] , [place]. tel:[phone] Family History Family Member Type Diagnosis Age At Onset Brother Problem (finding) Alive and well Father Problem (finding) Unknown Disease Mother Problem (finding) COPD Payers Payer name Insurance type Covered green party ID Authoriza tion(s) No Information Social History Type Description Quantity Date Captured Comments Alcohol Use Details Caffeine Use Details Unknown Tobacco Use Status Heavy cigarette smok er (20-39 cigs/day) Smoking Status Heavy tobacco smoker Sex Female Vital Signs Date / Time: Height Weight BMI Pulse Rate Blood Pressure Temperature Respiratory Rate Body Surface Area Head Circumference BMI percentile Pulse Ox Inhaled Ox 10:51 PM 68.00 in 143.00 lbs 21.7 4 kg/m eter (2) 130/60 mm[Hg] Chief Complaint And Reason For Visit From encounter dated '01/30/2021 18:18'. anxiety1 (chief complaint). Description: Pt has chronic anxiety and depression Pt takes cymbalta and valium and doing ok. Pt denies any suicidal or homicidal thought Pt denies any crying spells GERD1 (chief complaint). Description: Pt has chronic GERD Pt takes pepcid and doing ok Pt denies any abd pain or any GERD ADD (chief complaint). Description: Pt has ADD Pt takes adderall and doing ok Pt feels more focused MS (chief complaint). Description: Pt has MS. Pt sees neurology. Pt is Ocervus every 6 months. Pt has muscle pain. Pt takes baclofen and ultram PRN. Pt doing ok Plan Of Treatment Date Type Action Status Goal Depression screening. Due on due Goal Influenza vaccine. Due on due Goal Lipid panel. Due on due Goal Pap/HPV testing. Due on due Goal Td vaccine. Due on due Goal Tdap. Due on due Goal Lipid panel. Due on due Goal Influenza vaccine. Due on due Goal Td vaccine. Due on due Goal Tdap. Due on due Goal Pap/HPV testing. Due on due Goal Depression screening. Due on due Goal Influenza vaccine. Due on due Goal Lipid panel. Due on due Goal Td vaccine. Due on due Goal Tdap. Due on due Goal Pap/HPV testing. Due on due Goal Depression screening. Due on due Goal Lipid panel. Due on due Goal Td vaccine. Due on due Goal Tdap. Due on due Goal Pap/HPV testing. Due on due Goal Depression screening. Due on due Goal Influenza vaccine. Due on due Goal Td vaccine. Due on due Goal Lipid panel. Due on due Goal Influenza vaccine. Due on due Goal Tdap. Due on due Goal Pap/HPV testing. Due on due Goal Depression screening. Due on due Goal Tobacco cessation counseling completed Goal Td vaccine. Due on due Goal Tdap. Due on due Goal Pap/HPV testing. Due on due Goal Depression screening. Due on due Goal Influenza vaccine. Due on due Goal Lipid panel. Due on due Goal Tobacco cessation counseling completed Goal Td vaccine. Due on due Goal Tdap. Due on due Goal Lipid panel. Due on due Goal Influenza vaccine. Due on due Goal Pap/HPV testing. Due on due Goal Depression screening. Due on due Goal Tobacco cessation counseling completed Goal Depression screening. Due on due Goal Pap/HPV testing. Due on due Goal Tdap. Due on due Goal Td vaccine. Due on due Goal Influenza vaccine. Due on due Goal Lipid panel. Due on due Goal Tobacco cessation counseling completed Goal Depression screening. Due on due Goal Pap/HPV testing. Due on due Goal Tdap. Due on due Goal Td vaccine. Due on due Goal Influenza vaccine. Due on due Goal Lipid panel. Due on due Goal Tobacco cessation counseling completed Goal Td vaccine. Due on due Goal Tdap. Due on due Goal Pap/HPV testing. Due on due Goal Depression screening. Due on due Goal Lipid panel. Due on due Goal Influenza vaccine. Due on due Goal Tobacco cessation counseling completed Goal Td vaccine. Due on due Goal Tdap. Due on due Goal Pap/HPV testing. Due on due Goal Lipid panel. Due on due Goal Influenza vaccine. Due on due Goal Depression screening. Due on due Goal Tobacco cessation counseling completed Goal Depression screening. Due on due Goal Pap/HPV testing. Due on due Goal Tdap. Due on due Goal Td vaccine. Due on 18 due Goal Influenza vaccine. Due on due Goal Lipid panel. Due on due Goal Td vaccine. Due on 18 due Goal Lipid panel. Due on due Goal Influenza vaccine. Due on due Goal Tdap. Due on due Goal Pap/HPV testing. Due on due Goal Depression screening. Due on due Goal Lipid panel. Due on due Goal Influenza vaccine. Due on due Goal Td vaccine. Due on 18 due Goal Tdap. Due on due Goal Pap/HPV testing. Due on due Goal Depression screening. Due on due Goal Depression screening. Due on due Goal Pap/HPV testing. Due on due Goal Tdap. Due on due Goal Td vaccine. Due on 18 due Goal Influenza vaccine. Due on due Goal Lipid panel. Due on 018 due Goal Depression screening. Due on due Goal Pap/HPV testing. Due on due Goal Tdap. Due on due Goal Td vaccine. Due on 18 due Goal Influenza vaccine. Due on due Goal Lipid panel. Due on 018 due Goal Td vaccine. Due on 16 due Goal Tdap. Due on due Goal Pap/HPV testing. Due on due Goal Depression screening. Due on due Goal Depression screening. Due on due Goal Pap/HPV testing. Due on due Goal Tdap. Due on due Goal Td vaccine. Due on 16 due Goal Depression screening. Due on due Goal Td vaccine. Due on due Goal Tdap. Due on due Goal Pap/HPV testing. Due on due Goal Tdap. Due on due Goal Td vaccine. Due on due Goal Pap/HPV testing. Due on due Goal Depression screening. Due on due Goal Tobacco cessation counseling completed Goal Tobacco cessation counseling completed Goal Tobacco cessation counseling completed Goal Tobacco cessation counseling completed Goal Tobacco cessation counseling completed Goal Tobacco cessation counseling completed Goal Tobacco cessation counseling completed Goal Tobacco cessation counseling completed Goal Tobacco cessation counseling completed Goal Tobacco cessation counseling completed Goal Tobacco cessation counseling completed Goal Tobacco cessation counseling completed Goal Tobacco cessation counseling completed Goal Tobacco cessation counseling completed Goal Tobacco cessation counseling completed Referral Ordered: Darrion Toscano -[facility] : Surgery (related to Nevus, non-neoplastic) ordered Referral Ordered: UPPER GI AIR CONTRASTW/ SMALL BOWEL SERIES ordered Referral Ordered: Phillip Robles -[facility] : Psychiatry & Neurology : Neurology (related to Abnormal brain scan) ordered Referral Referred To: Phillip Robles [address] [id number] Ordered: Referrals: [facility] : Psychiatry & Neurology : Neurology. Phillip Robles. Evaluate and treat ordered Referral Ordered: Darrion Toscano -[facility] : Surgery (related to Nevus, non-neoplastic) ordered Referral Ordered: MRI BRAIN W/O DYE ordered Referral Referred To: Darrion Toscano [facility] [address] [place] [id number] Ordered: Referrals: [facility] Phys[facility] : Surgery. Darrion Toscano. Evaluate and treat ordered Referral Ordered: ELECTROCARDIOGRAM, COMPLETE ordered Referral Ordered: Cardiology (related to Other chest pain) ordered Referral Ordered: Referrals: Cardiology. Evaluate and treat ordered Referral Ordered: DOPPLER ECHO EXAM, HEART ordered Referral Ordered: Dermatology (related to Nevus, non-neoplastic) ordered Referral Ordered: Referrals: Dermatology. Evaluate and treat ordered Referral Ordered: MAMMOGRAM, SCREENING ordered Referral Ordered: KNEE XRAY TWO-VIEW ordered Referral Ordered: Physical Therapy ordered Referral Ordered: UNILATERAL RIBS/CHEST XRAY 1 VIEW ordered Referral Referred To: Physical Therapy Ordered: Referral: Physical Therapy. ordered Referral Ordered: Genrl Surg ordered Referral Ordered: Referral: Genrl Surg. ordered Referral Ordered: US SOFT TISSUE CHEST ordered History Of Present Illness Encounter Date Complaint History Of Prese nt Illness MS Pt has MS. Pt se es neurology. Pt is Ocervus every 6 months. Pt has muscle pain. Pt takes baclofen and ultram PRN. Pt doing ok ADD Pt has ADD Pt ta kes adderall and doing ok Pt feels more focused anxiety1 Pt has chronic a nxiety and depression Pt takes cymbalta and valium and doing ok. Pt denies any suicidal or homicidal thought Pt denies any crying spells GERD1 Pt has chronic G ERD Pt takes pepcid and doing ok Pt denies any abd pain or any GERD MS Pt has MS. pt se es neurology and gets IV infusion every 6 months Pt has chronic myalgia from above. pt takes ultram PRN and doing ok GERD1 Pt has chronic G ERD Pt doing ok with pepcid pt denies any abd pain glucose1 Pt did not do la b fasting Pt had ice cream before lab Pt denies any polyuria polydipsia. CPK Pt has low CPK a nd borderline high phos. Pt has normal PTH and D. ADD Pt has ADD pt do ing ok with adderall PRn anxiety1 Pt has chronic a nxiety and depression Pt doing ok with cymbalta and valium PRN Pt denies any suicidal or homicidal thought .Pt denies any crying spells low D Pt has low D. Pt has high phos. Pt denies any bone pain amenorrhea1 Pt has not had p eriod for 6 months, Pt notices some hot flash as well , Lab shows that she is postmeno amenorrhea1 Pt has not had p eriod for 2-3 months ,Pt denies any vaginal bleeding or pain or discharge. her had vasectomy. Pt has some hot flash GERD1 Pt only takes pe pcid PRn and she denies any daily GERD pt has very mild gerd. Pt denies any abd pain MS Pt is on ocrevus infusion and she takes ultram and cymbalta and baclofen for muscle pain, pt doing ok currently anxiety1 Pt has chronic a nxiety and depression ,Pt doing much better with cymbalta and valium Pt denies any suicidal or homicidal thought physical Pt needs annual physical. pt has MS. Pt is getting IV infusion now but not sure the name .Pt has GERD Pt takes pepcid daily Pt is off omeprazole. Pt doing ok with pepcid. pt has anxiety Pt takes valium and doing ok Pt denies any suicidal or homicidal thought. Pt has MS .Pt has muscle pain Pt is on neurontin but is not helping ,Pt has ADD Pt doing ok with adderall Pt has muscle spasm from MS Pt feels numbness and tingling all over MS Pt has MS Pt has diffuse muscle pain Pt states that ultram did help, her MS doctor told her to try medical marijuana ADD Patient has ADD. Patient has inattentive type. Patient feels scatterbrained. Patient feel poor focus and difficulty completing tasks. Patient states that Adderall is helping with symptoms. Patient feels more focused. Pt feels more energy. Patient denies any headache, dry mouth, headache, chest pain. Patient denies any appetite loss. GERD1 Pt has intermitt ent GERD. Pt has sliding hiatal hernia. 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 pt denies any sick or cough or night sweat or recent travel amenorrhea1 Pt has not had p eriod for 3 months Pt has hot flash, Pt had not had sex for 3 months. Pt denies MS Pt was just diag nosed with progressive MS. Pt has intermittent blurred vision, burning around head, some intermittent leg pain and weakness. and some diffuse muscle pain Pt is seeing neurology and [facility] and she will start IV treatment soon. ADD Pt has ADD, inat tentive type, Pt doing ok with adderall. 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 Pt notice a small puncture bryan. pt denies any pain or swelling or bruising. Pt denies any issue with finger stiffness or numbness. pt denies any pain or redness or warmth. Pt denies any drainage. Her nurse told her to apply a splint on her finger today Pt denies any active complaints about finger anxiety1 Pt has chronic a nxiety and depression Pt takes wellbutrin and valium and doing ok Pt denies any suicidal or homicidal thought Pt denies any crying spells. Pt has intermittent GERD Pt doing ok with omeprazole PRN. Pt only takes 1-2 per week and doing ok. Pt has ADD Pt doing ok with adderall PRN spider bite1 Pt was bitten by spider last month pt notices occasional pain around the area. Pt denies any redness or warmth. pt denies any drainage Pt denies any rash PHysical Pt needs annual physical. Pt has GERD and hiatal hernia. Pt has not had any chest pain Pt failed zantac. Pt states that omeprazole working well for her. Pt has ADD and doing ok with adderall. Pt has chronic anxiety and depression Pt takes wellbutrin and valium and doing ok. Pt has burning type of headache on top of right scalp 3-4 per week pt denies any head injury. Pt denies waking up at night with headache Pt is off amitriptyline. Pt made arpita to see new neurologist at [facility] in two weeks. Pt denies any acute headache chest pain1 Pt only had 1-2 midsternal chest pain since taking omeprazole. Pt had negative cardiac stress test early this year. Pt denies any exertional chest pain. Pt states that the pain seems not lasting as long and not as severe than in the past. PT states that the midsternal chest pain only last 1-2 mins each time and she only had two episodes. ADD Pt has ADD, inat tentive type. Pt doing ok with adderall. pt feels more focused GERD1 Pt has chronic G ERD pt has been taking omeprazole and she is doing much better. Pt had upper gi which showed hiatal hernia. Pt states that omeprazole is doing ok midabd pain1 Pt has been havi ng intermittent midepigastric pain. pt states that she went to ER last week due to acute onset of midepigastric pain and she notices some neck and arm pain. Pt denies any chest pain. pt has been taking tums frequently due to GERD. Pt states that pain is sharp and is positional related. pt went t ER last Wednesday and had normal EKG and lab and chest x ray. Pt was told that it is due to nerve?/ Pt denies any exertional chest pain. Pt denies any acute symptoms. Pt has mild nausea since last week. Pt still has gallbladder. Pt denies any abd pain with food. anxiety1 Pt has chronic a nxiety and depression. Pt takes wellbutrin and valium and doing ok. Pt denies any suicidal or homicidal thought. Pt denies any crying spells ADD Pt has ADD. Pt t akes adderall and doing ok. headache1 Pt seen neurolog y and she was off topamax and imitrex Pt states that she is nauseated with imitrex. Pt is on amitriptyline now. Pt was told by neurology that MRi of brain is ok and she has tension headache. Pt has headache 1-2 per week still. Pt denies any acute headache. headache1 Pt has been havi ng right side pressure and throbbing headache involving right side of scalp with skin sensitivity for 2-3 months. Pt denies any head injury. Pt denies waking up at night with headache. Pt has headache 2-3 per week. Pt states that topamax 25 mg has not helped. Pt does have photophobia and nausea with headache sometimes Pt denies any acute or worsening headache. MRI showed some white matter change, which is nonspecific , Pt denies any vision change or any neurologic deficit or weakness ADD pt has ADD, inat tentive type. Pt feels better with adderall. headache1 Pt c/o right sujatha e pressure headache 3-4 per week since two months ago. Pt has photophobia and nausea sometimes with headache but not every time. Pt states that the headache last all day. Pt states that she feels sensitive right side of scalp during headache and she cannot even touch it. Pt denies any rash Pt denies any head injury Pt woke up several times at night due to headache Pt denies any triggering factor anxiety1 Pt has chronic a nxiety and depression Pt takes wellbutrin and valium. Pt denies any suicidal or homicidal thought Pt denies any crying spells ADD Pt has ADD, inat tentive type. Pt doing ok with adderall. pt feels more focused anxiety1 Pt has chronic a nxiety and depression. pt takes wellbutrin and valium and doing ok. pt denies any suicidal or homicidal thought. Pt denies any crying spells palpitation1 Pt has intermitt ent palpitation pt denies any chest pain. Holter and stress echo benign. Pt is seeing cardiology. pt denies any acute symptoms ADD Pt has ADD Pt alejandro s inattentive type pt doing ok with adderall vitamin D1 Pt has low D anxiety 1 Pt has chronic a nxiety and depression. Pt takes wellbutrin and valium and doing ok. Pt denies any suicidal or homicidal thought. Pt denies any crying spell chest pain1 Pt has intermitt ent sharp left side chest pain for several years. Pt just seen cardiology and she had benign EKG and also normal cardiac stress echo. Pt denies any exertional chest pain. Pt was cleared by cardiology. Pt states that the chest pain is sharp and occurs randomly. Pt feels palpitation along with sharp chest pain. Physical Pt needs annual physical. pt has chronic anxiety and depression. Pt takes wellbutrin and valium and doing ok. Pt denies any suicidal or homicidal thought. Pt denies any crying spells. Pt has ADd, inattentive type. Pt did well with adderall in the past. Pt denies any other complaints anixety1 Pt has chronic a nxiety and depression. Pt has a lot of social stress and she is constantly feeling panic and stressed out. Pt denies any suicidal or homicidal thought. Pt denies any cyring spells. Pt states that buspar does not seems helping at all.Pt does like wellbutrin, which helps her anxiety and depression. ADD Pt has ADD. Pt h as difficulty with focus and attention. Pt states that adderall has been helping her. underweight Pt has chronical ly low BMI. Pt denies any nasua, vomiting ,GI complaints. Pt actually gained some weight. Pt is at her baseline weight. chest pain1 Pt has stress in duced noncardiac chest pain. Pt denies any exertional chest apin. Pt was cleared of any cardiac pathology by cardiology recently. Pt denies any acute chest pain anxeity1 Pt has chronic a nxiety and depression. Pt takes wellbutrin and buspar Pt denies any suicidal or homicdial thought. Pt denies any crying spells. chest pain chest pain1 Pt has intermitt ent left side chest pain for several months. Pt had benign cardiac echo. Pt states that she has sharp left side chest pain intermittently especially when she feels stressed out. Pt denies any radiation of pain to left arm. Pt denies any diaphoresis. Pt denies any exertional chest pain. Pt states that sometimes she feels palpitation also during stress ADD1 Pt has ADD. Pt t akes adderall and doing ok. Pt denies any abd pain. Pt feels more focused with medication. chest pain chest pain1 Pt has intermitt ent left side chest pain under breast daily for the past 4 weeks. Pt denies any exertional chest pain. Pt denies any injury. Pt states thah pain occurs randomly without exertion and sometiems takes her breath away. Pt stats taht the pain usually last 2-3 mins Pt denies any SOB Pt went to ER and had negative troponin and chest xray showed hyperinflation. EKG showed ? RVH. Pt denies any radiation to left arm. Pt denies any diaphoresis. Pt denies any calf pain Pt denies any recent travel. Pt denies any pain with breathing Physical Pt needs annual physical. Pt has chroniic anxiety and depression and she takes wellbutrin, buspar and xanax PRN. Pt doing ok Pt denies any suicdial thought. Pt has stable mood and feels happy. 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 Pt has been taking adderall PRN and doing ok. Pt feels more focused and she can do her job better Pt has a mole on her back for long time, . Pt notices mild itching. Pt denie any size changePt denies any other complaints Instructions Date Instruction Additional Infor sumaya Quit smoking Related to Encou nter for general adult medical exam w abnormal findings Quit smoking Related to Atten tion deficit Weight gain advised Related to B magalie mass index (BMI) 22.0-22.9, adult Weight gain advised Related to B magalie mass index (BMI) 22.0-22.9, adult Quit smoking Related to Atten tion deficit Quit smoking Related to Atten tion deficit Quit smoking Related to Encou nter for general adult medical exam w abnormal findings Eat smaller meals, n o eating three hours prior to bedtime. Related to GERD w/o esophagitis Elevate head of bed prior to sle ep. Related to GERD w/o esophagitis Quit smoking Related to Heada marcio Quit smoking Related to Migra ine Quit smoking Related to Heada marcio Quit smoking Related to Palpi tations Quit smoking Related to Encou nter for general adult medical exam w abnormal findings Dietary counseling Related to Di etary surveillance counseling Increase caloric intake Related to Dietary surveillance counseling Increase caloric intake Related to Dietary surveillance counseling Dietary counseling Related to Di etary surveillance counseling Perform monthly self breast examinations. Related to Routine Medical Exam Dietary counseling Related to Di etary surveillance counseling Decrease caloric intake Related to Dietary surveillance counseling Quit smoking. Related to Routi ne Medical Exam Decrease caloric intake Related to Dietary surveillance counseling Dietary counseling Related to Di etary surveillance counseling Dietary counseling Related to Un derweight, BMI less than 19 Increase caloric intake Related to Underweight, BMI less than 19 Assessments Type Assessment Date assessment Generalized anxiety disorder Jan assessment GERD w/o esophagitis assessment Attention deficit assessment Multiple sclerosis NOS Mental Status Date Cognitive Assessment Orientation - [place] ed to time, place, person, situation.
--- OUTSIDE RECORDS SUMMARY | 2025-03-21 10:18 | XMS_ITS | Encounter Summary ---
Author Organization [facility] Healthcare Address [address] [place] [address] Care Team Providers Care Cryptographer Name Role Phone Mono Sloan MD Primary Care Provider [phone] Nayeli Kelly Unavailable [phone] Fany Olguin MD Primary Care Provider [phone] Claudia Olson NP Primary Care Provider [phone] Encounter Details Date Type Department Care Team (Late st Contact Info) Description 03/08/2020 Telephone [facility] Radiology [address] [place], [place] [id number] Aby Tam, [facility] [address] [place] [address] Social History Tobacco Use Types Packs/Day Years Used Date Smoking Tobacco: Every Day Cigarettes Smokeless Tobacco: Never Comments:has smoked since e was 14. 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 Not on file Not on file documented as of this encounter Plan of Treatment Not on file documented as of this encounter Visit Diagnoses Not on filedocumented in this encounter Additional Health Concerns Infection Onset Date Last Indicated Resolved Time COVID: Suspected 09/05/2020 09/05/2020 09/19/2020 3:07 AM MARK UP DESIGNER documented as of this encounter Care Teams Cryptographer Relationship Specialty Start Date End Date Mono Sloan MD PCP - General Family Medicine 11/16/17 12/29/21 Fany Olguin MD [address] [place] [address] PCP - General Internal Medicine 12/30/21 11/02/23 Claudia Olson NP [address] [place] [id number] PCP - General Nurse Practitioner 11/03/23 Nayeli Kelly, [facility] Speech Language Pathologist Speech Therapy 03/18/21 05/05/21 documented as of this encounter
--- OUTSIDE RECORDS SUMMARY | 2025-03-21 10:19 | XMS_ITS | Clinical Summary ---
Author Organization [facility] [employer] Address [address] [place] [address] Care Team Providers Care Skid [address] Man Name Role Phone Mono Sloan MD Primary Care Provider [phone] Source Comments [facility] [employer],non-[facility] Affiliates and Associated Physician Practices is amultiple site organization consisting of ambulatory clinics and hospital sitesin [place], [place], [place] and [place]. This disclosure is being madepursuant to the Care Everywhere program and may not contain all information available regarding this patient. Last updated 18.[facility] [employer] Allergies No known active allergies Immunizations Immunization Administration Dates Next Due INFLUENZA VACCINE, QUADR. 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 Gender Identity Not on file Sexual Orientation Not on file Plan of Treatment Health Maintenance Due Date Last Done Comments COLOGUARD (AGES 45-75) - COL ON CA SCREENING 1974 COLON MONITORING 1974 COLONOSCOPY - COLON CA SCREENING 1974 CT COLONOGRAPHY - COLON CA SCREENING 1974 Colorectal Cancer Screening 1974 FIT - COLON CA SCREENING 1974 FLEX SIG - COLON CA SCREENING 1974 LIPID TESTING 1974 MAMMOGRAM 1974 HIV SCREENING 1989 HEPATITIS C SCREENING 12/24/1992 DTAP/TDAP/TD VACCINES (1 - Tdap) 1993 HEPATITIS B VACCINE (1 of 3 - 19+ 3-dose series) 1993 DEPRESSION SCREENING 07/12/2024 PNEUMOCOCCAL VACCINE 50+ (1 of 1 - PCV) 2024 ZOSTER VACCINE (1 of 2) 2024 COVID-19 VACCINE (1 - 2023-2 5 season) 2025 INFLUENZA VACCINE (#1) 2025 05/29/2019 HIB VACCINE Aged Out No longer eligi ble based on patient's age to complete this topic HPV VACCINE Aged Out No longer eligi ble based on patient's age to complete this topic MENINGOCOCCAL (Group B) VACC INE SHARED DECISION-MAKING Aged Out No longer eligibl e based on patient's age to complete this topic MENINGOCOCCAL GROUPS A/C/Y/W VACCINE Aged Out No longer eligible b ased on patient's age to complete this topic Insurance [facility] Address: [facility] [id number] [place] [phone] [address] [id number] Care Teams Skid [address] Man Relationship Specialty Start Date End Date Mono Sloan MD PCP - General 08/05/21
--- OUTSIDE RECORDS SUMMARY | 2025-03-21 10:19 | XMS_ITS | Encounter Summary ---
Author Organization [facility] Healthcare Address [address] [place] [address] Care Team Providers Care Electrical Controls Assembler Name Role Phone Mono Sloan MD Primary Care Provider [phone] Fany Olguin MD Primary Care Provider [phone] Claudia Olson NP Primary Care Provider [phone] Encounter Details Date Type Department Care Team (Late st Contact Info) Description 12/04/[address] 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
--- OUTSIDE RECORDS SUMMARY | 2025-03-21 10:19 | XMS_ITS | Clinical Summary ---
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 Medications diazePAM (VALIUM) 5 mg tablet Take 1 tablet (5 mg total) by mouth nightly as needed 09/21/2018 Active famotidine (PEPCID) 20 mg tablet Take 1 tablet (20 mg total) by mouth as needed 0 10/30/[address] (CYMBALTA) 30 mg capsule Take 1 capsule (30 mg total) by mouth daily 08/18/2019 Active baclofen (LIORESAL) 10 mg tablet Take 1 tablet (10 mg total) by mouth 3 (three) times a day 90 tablet 5 06/16/2021 Active dextroamphetami ne-amphetamine (ADDERALL) 5 mg tablet Take 1 tablet (5 mg total) by mouth 3 (three) times a day 10/24/2021 Active traZODone (DESYREL) 50 mg tabletIndicatio ns:Multiple sclerosis (HCC),Spasticit y,Other insomnia Take 1 tablet (50 mg total) by mouth nightly as needed for sleep 30 tablet 5 02/12/2023 Active ondansetron (ZOFRAN) 4 mg tabletIndicatio ns:Multiple sclerosis (HCC) Take 1 tablet (4 mg total) by mouth every 8 (eight) hours as needed for nausea or vomiting 30 tablet 06/01/2023 Active ofatumumab (Kesimpta Pen) 20 mg/0.4 mL pen injectorIndicat ions:Multiple sclerosis (HCC) Inject 20 mg under the skin every 30 (thirty) days 0.4 mL 2 12/22/2024 Active ofatumumab (Kesimpta Pen) 20 mg/0.4 mL pen injectorIndicat ions:relapsing form of multiple sclerosis Inject 20 mg under the skin every 30 (thirty) days 0.4 mL 12/22/2024 Active Active Problems Problem Noted Date Diagnosed Date Medication monitoring encounter 05/21/2023 Immunosuppression due to drug therapy 11/25/2021 Dysesthesia of multiple sites 03/03/2021 High risk medication use 03/01/2020 Chronic fatigue disorder 03/01/2020 Tinnitus 03/01/2020 Vitamin D deficiency 09/01/2019 Abnormality of gait and mobility 09/01/2019 Spasticity 09/01/2019 Multiple sclerosis 05/29/2019 Mixed anxiety and depressive disorder 10/05/2018 Dysphoric mood 10/05/2018 Attention deficit 10/05/2018 Abnormal MRI 10/05/2018 Other headache syndrome 10/05/2018 Encounters Date Type Department Care Team Description 12/21/2024 Telephone [facility] [address] [place] [id number] Yolanda Key RPh 12/21/2024 Telephone [facility] [address] [facility] [address] [place] [id number] Aby Tam, BILLING CUSTOMER SERVICE REPRESENTATIVE from Last 3 Months Immunizations Immunization Administration Dates Next Due Influenza, Quadrivalent, Rec ombinant, Egg Free, Preservative Free, Intramuscular 06/17/2023 Influenza, Quadrivalent, Spl it, Preservative Free, Intramuscular 05/29/2019 Influenza, Trivalent, Recomb inant, Egg Free, Preservative Free, Antibiotic Free, IM (FLUBLOK) 03/20/2024 Moderna SARS-CoV-2 Monovalent Vaccination (12+ Y RS) 12/14/2020,11/16/2020 Tdap 03/09/2022 Surgical History Surgery Date Site/Laterality Comments LYMPH NODE BIOPSY Medical History Medical History Date Comments GERD (gastroesophageal reflux disease) MS (multiple sclerosis) Failure to thrive (child) GI problem Joint pain Peripheral neuropathy Family History Medical History Relation Name Comments No Known Problems Father COPD Mother Relation Name Status Comments Father Mother Social History Tobacco Use Types Packs/Day Years Used Date Smoking Tobacco: Every Day Cigarettes Smokeless Tobacco: Never Tobacco Cessation:Ready to Q uit: Not Asked; Counseling Given: Not Answered Comments:has smoked since she was 14. 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 Gender Identity Not on file Sexual Orientation Not on file Occupation Industry Job Start Date Job End Date [employer] Not on file Not on file Not on file Obstetrics History Last Filed Vital Signs Vital Sign Reading Time Taken Comments Blood Pressure 100/66 11/16/2024 1:01 PM CDT Pulse 80 11/16/2024 1:01 PM CDT Temperature 36.2 C (97.1 F) 12/07/2023 12:43 PM CDT Respiratory Rate 16 05/14/2020 3:15 PM PATIENT CASE MANAGER Oxygen Saturation 97% 05/14/2020 3:15 PM PATIENT CASE MANAGER Inhaled Oxygen Concentration - - Weight 63.2 kg (139 lb 6.4 oz) 11/16/2024 1:01 P M CDT Height 170.2 cm (5' 7) 11/16/2024 1:01 PM CDT Body Mass Index 21.83 11/16/2024 1:01 PM CDT Plan of Treatment Health Maintenance Due Date Last Done Comments Breast Cancer Screening-Mammogram 1974 Cervical Cancer Screening 1974 Colon Cancer Screening-Colonoscopy 1974 Depression Screening 1974 Hepatitis B Screening 1992 Regular Well Visit/Exam 18-64 1992 Pneumococcal vaccine <65 (1 of 2 - PCV) 1993 Zoster Vaccine (1 of 2) 1993 Covid-19 Vaccine (3 - Modern a risk series) 01/11/2021 12/14/2020, 11/16/2020 Influenza Vaccine (#1) 2025 , 06/17/2023, 05/29/2019 DTaP/Tdap/Td Vaccine (2 - Td or Tdap) 03/09/2032 Hepatitis C Screening Completed 02/21/2019 Procedures Procedure Name Priority Date/Time Associated Diagnosis Comments HEPATITIS C ANTIBODY Routine 02/21/2019 10:40 AM CDT Abnormal MRI High risk medication use from Last 3 Months or Most Recently Relevant to Health Maintenance Results * Hepatitis C antibody (02/21/2019 10:40 AM CDT) Hep C Ab Nonreactive Nonreactive WALLACE MURILLO Comment: Interpretive Data Positive results should be confirmed by a molecular method. If positive, a second separately collected sample should be submitted for Hepatitis C Virus (HCV) RNA Detection and Quantitation by Real-Time Reverse Bo[employer]wains Mate-PCR (RT-PCR). Current interpretive data was last revised on 2016. Blood specimen (specimen) 02/21/2019 10:40 AM CDT 02/21/2019 10:54 AM CDT us Janice Larsen MD LAB MICROBIOLOGY - GENERAL ORDER ROBERTA Edited Result - Final [facility] Department [place] [address] from Last 3 Months or Most Recently Relevant to Health Maintenance Insurance [facility] ANTHEM ACCESS BLUE ACCESS OOS BLUE ACC CHOICE OOS [employer] Address: [address] [place] [phone] Care Teams Gravel Machine Operator Relationship Specialty Start Date End Date Claudia Olson NP [address] [place] [address] PCP - General Nurse Practitioner 11/03/23
--- OUTSIDE RECORDS SUMMARY | 2025-03-21 10:19 | XMS_ITS | Clinical Summary ---
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 Name Role Phone Unavailable Primary Care Provider Unavailabl e Social History Tobacco Use Types Packs/Day Years Used Date Smoking Tobacco: Never Assessed Comments Unknown Sex and Gender Information Value Date Recorded Sex Assigned at Not on file Legal Sex Female 8:30 PM CDT Gender Identity Not on file Sexual Orientation Not on file Plan of Treatment Health Maintenance Due Date Last Done Comments Cervical Cancer Screening Pa p Smear (Age 30 to 64) Every 3 Years 1974 Colorectal Cancer Screening Colonoscopy (10 Years) 1974 Annual Physical 1977 Hepatitis C 1992 DTaP, Tdap and Td Vaccines ( 1 - Tdap) 1993 Hepatitis B Vaccines (1 of 3 - 19+ 3-dose series) 1993 Cervical Cancer Screening Pa p with HPV Testing (Age 30 to 64) Every 5 Years 2004 Cervical Cancer Screening with HPV 2004 Mammogram Screening 2014 Pneumococcal Vaccine: 50+ Ye ars (1 of 1 - PCV) 2024 Zoster Vaccines (1 of 2) 2024 COVID-19 Vaccine (2023-2 5 season) 2025 Meningococcal B Vaccine Aged Out No l onger eligible based on patient's age to complete this topic Meningococcal Vaccine Aged Out No aure jasper eligible based on patient's age to complete this topic RSV Immunizations Under 20 Months Aged Out No longer eligible based on patient's age to complete this topic
[2025-03-21 19:13] LABS: Alanine Aminotransferase 15 U/L (6-35); Albumin Level 4.3 g/dL (3.5-5.1); Anion Gap 8 mmol/L (4-12); Aspartate Amino Transferase 55 U/L (14-36); Blood Urea Nitrogen 9 mg/dL (7-17); Calcium 9.0 mg/dL (8.4-10.2); Carbon Dioxide 23 mmol/L (22-30); Chloride 107 mmol/L (98-107); Cholesterol 193 mg/dL (0-200); Estimated Glomerular Filt Rate > 60; Glucose 96 mg/dL (65-110); Potassium 4.2 mmol/L (3.4-5.0); Sodium 138 mmol/L (137-145); Total Protein 7.0 g/dL (6.3-8.2); Triglycerides 84 mg/dL (<150)
[2025-03-21 19:18] LABS: Hematocrit 41.8 % (37.0-47.0); Hemoglobin 13.3 g/dL (12.0-15.0); Mean Corpuscular HGB Conc 31.8 g/dl (32-36); Mean Corpuscular Hemoglobin 30.2 pg (26-34); Mean Corpuscular Volume 95.0 fl (80-100); Platelet Count Result 274 k/mm3 (150-375); Red Blood Count 4.40 M/mm3 (4.2-5.4); White Blood Count 8.3 K/mm3 (4.5-10.0)
[2025-03-21 19:27] LABS: Alkaline Phosphatase 69 U/L (38-126); Bilirubin,Total 0.4 mg/dL (0.2-1.3); HDL Direct 53 mg/dL
[2025-03-21 19:50] LABS: Thyroid Stimulating Hormone 1.230 uIU/mL (0.465-4.680)
[2025-03-21 20:09] LABS: Vitamin B12 368.0 pg/mL (239-931)
== END 2025-03-21 09:28 | disposition home or self-care (01) ==
PROVIDERS: PCP Nurse Practitioner Adult Health; Visit Provider Nurse Practitioner Adult Health
DX: Z13.9 Encounter for screening, unspecified (principal); L65.9 Nonscarring hair loss, unspecified
CPT/HCPCS: 36415; 80053; 80061; 82607; 84443; 85027